=== PATIENT | female | born 1990 | race Caucasian/White ===

== ENCOUNTER → 2016-07-16 | Day surgery (SDC) | payer OTHER ==
[~2016-07-16] VITALS: Ht 162.6 cm; Wt 49.9 kg
[~2016-07-16] MED LIST: ORAL CONTRACEPTIVE
--- NOTE | 2016-07-16 10:28 | Operative Report ---
Operative/Inv Procedure Report Surgery Date: 07/16/16 Name of Procedure: R renal ESWL Pre-Operative Diagnosis: R renal calculus Post-Operative Diagnosis: same Estimated Blood Loss: scant Surgeon/Director Post: Chuck STEPHENS,JOHN Malagon Anesthesia: moderate sedation Drains: none Specimens: none Complications: none Condition: stable Operative Indication: R renal stone Operative/Procedure Note Note: The patient was taken to the operating room and identified. She was placed in the supine position on the lithotripsy table. Timeout was executed appropriately with the patient awake. Using the ultrasound of the right lower pole renal stone was localized. A surgical pause was then executed appropriately. She was then begun. A total of 2500 shocks were given. The treatment was started at a low energy level and increased to maximum. The patient tolerated the procedure well and as completion was taken to the recovery room in stable condition. Findings: R lower pole renal stone
== END ==
LOC: STS 02:21
DX: N20.0 Calculus of kidney (principal); Z87.442 Personal history of urinary calculi
CPT/HCPCS: 81025; J0690; J1885; J2250